=== PATIENT | male | born 1970 | race Caucasian/White ===

== ENCOUNTER 2018-11-10 09:22 | Outpatient (CLI) | payer BC, SELFPAY ==
--- NOTE | 2018-11-10 08:58 | DI.RAD_ITS ---
SYMPTOM/DIAGNOSIS: PAIN LEFT RING FINGER: No fracture or dislocation is seen. There are no significant degenerative changes or evidence of bony erosions. No soft tissue mass or soft tissue calcifications are seen. IMPRESSION: Negative left ring finger.
== END 2018-11-10 09:42 ==
PROVIDERS: Visit Provider Physician Assistant
DX: M79.645 Pain in left finger(s) (principal)
CPT/HCPCS: 73140